=== PATIENT | female | born 1990 | race Caucasian/White ===

== ENCOUNTER 2017-08-20 17:06 | Inpatient (IN) | payer BC ==
[~2017-08-20] VITALS: Ht 154.9 cm; Wt 62.7 kg
[2017-08-20] VITALS (8 sets, daily range): BP systolic 105–133; BP diastolic 56–67
[~2017-08-20 17:06] MED LIST: ENDOCET 5-3251 EACH PO; IBUPROFEN800 MG PO; ZOLOFT25 MG PO
[2017-08-20 17:52] LABS: BASOPHIL COUNT 0.1 K/uL (0-0.1); EOSINOPHIL (%) 0.5 % (0-5); EOSINOPHIL COUNT 0.1 K/uL (0-0.3); HEMATOCRIT 34.5 % (36.0-46.0); IMMATURE GRANULOCYTE (%) 3.2 % (0.0-0.7); IMMATURE GRANULOCYTE COUNT 0.5 K/uL; LYMPHOCYTE COUNT 2.6 K/uL (1.0-2.8); MCH 29.6 PG (29.0-34.0); MCHC 32.5 G/DL (30.0-36.0); MCV 91.3 FL (83-99); MEAN PLAT.VOLUME 10.8 uM^3 (9.5-12.4); MONOCYTE (%) 7.9 % (3-12); MONOCYTE COUNT 1.2 K/uL (0-0.8); PLATELET COUNT 220 K/uL (156-360); RBC DIS.WIDTH-CV 12.8 % (11.8-14.6); RBC DIS.WIDTH-SD 42.1 % (39-53); RED BLOOD COUNT 3.78 M/uL (3.80-5.20); WHITE BLOOD COUNT 15.5 K/uL (4.1-10.2)
[2017-08-21] VITALS (49 sets, daily range): BP systolic 84–147; BP diastolic 47–77
[2017-08-22] VITALS (10 sets, daily range): BP systolic 100–123; BP diastolic 58–79
[2017-08-22] MEDS ORDERED: IBUPROFEN800 MG PO (01:28)
[2017-08-23 07:34] VITALS: BP 106/75
== END 2017-08-23 15:06 | disposition home or self-care (01) | DRG 775 ==
LOC: LDRP-OP 17:06 → 2WEST 17:07 → LDRP-OP 09-29 09:52
PROVIDERS: Nurse Practitioner
PROC: 3E0P7VZ Introduction of Hormone into Female Reproductive, Via Natural or Artificial Opening (ICD-10-PCS; principal; 2017-08-20)
PROC: 3E0P3VZ Introduction of Hormone into Female Reproductive, Percutaneous Approach (ICD-10-PCS; principal; 2017-08-20)
PROC: 3E0R3BZ Introduction of Anesthetic Agent into Spinal Canal, Percutaneous Approach (ICD-10-PCS; 2017-08-21)
PROC: 00HU33Z Insertion of Infusion Device into Spinal Canal, Percutaneous Approach (ICD-10-PCS; 2017-08-21)
PROC: 0U7C7ZZ Dilation of Cervix, Via Natural or Artificial Opening (ICD-10-PCS; 2017-08-21)
PROC: 10E0XZZ Delivery of Products of Conception, External Approach (ICD-10-PCS; 2017-08-22)
DX: O41.03X0 Oligohydramnios, third trimester, not applicable or unspecified (principal); O99.344 Other mental disorders complicating childbirth; F41.9 Anxiety disorder, unspecified; O99.353 Diseases of the nervous system complicating pregnancy, third trimester; G43.909 Migraine, unspecified, not intractable, without status migrainosus; Z37.0 Single live birth; Z3A.38 38 weeks gestation of pregnancy; Z80.1 Family history of malignant neoplasm of trachea, bronchus and lung; Z80.3 Family history of malignant neoplasm of breast; Z81.8 Family history of other mental and behavioral disorders; Z82.3 Family history of stroke
CPT/HCPCS: 85025; C1755; G0378; J3010; J7120